=== PATIENT | male | born 1970 | race African-American/Black ===

== ENCOUNTER 2017-09-25 01:19 | Emergency (ER) | payer BC, OTHER ==
[~2017-09-25] VITALS: Ht 180.3 cm; Wt 110.0 kg
[~2017-09-25 01:19] MED LIST: CLEOCIN150 MG PO; CLEOCIN300 MG PO; CLINDAMYCIN HC300 MG PO; DILAUDID2 MG PO; ENDOCET 5-3251 EACH; FLEXERIL10 MG; FLEXERIL10 MG PO; IBUPROFEN800 MG; IBUPROFEN800 MG PO; LORTAB 5-325 M1 EACH PO; MOTRIN400 MG PO; MOTRIN600 MG PO; MOTRIN800 MG PO; NAPROSYN500 MG PO; NAPROXEN500 MG PO; NOHOMEMEDS; NORCO 5/3251 TABLET PO; PERCOCET 5/31 TABLET PO; ULTRAM50 MG PO; VALIUM5 MG PO
[2017-09-25 03:06] LABS: HEMATOCRIT 43.9 % (38.0-50.0); HEMOGLOBIN 14.4 G/DL (12.5-16.6); MCH 28.2 PG (29.0-34.0); MCHC 32.8 G/DL (30.0-36.0); MCV 85.9 FL (86-99); PLATELET COUNT 204 K/uL (156-360); RBC DIS.WIDTH-CV 13.2 % (11.8-14.6); RBC DIS.WIDTH-SD 41.8 % (39-53); RED BLOOD COUNT 5.11 M/uL (4.00-5.50); WHITE BLOOD COUNT 7.8 K/uL (4.1-10.2)
[2017-09-25 03:16] LABS: CHLORIDE 108 mEq/L (99-109); POTASSIUM 4.5 mEq/L (3.7-5.4); SODIUM 140 mEq/L (136-147)
[2017-09-25 03:17] LABS: GLUCOSE 107 mg/dL (70-99)
[2017-09-25 03:21] LABS: CREATININE 1.1 mg/dL (0.6-1.3); GFR ESTIMATE (CALCULATED) > 59 mL/min/ (58.99-99999)
[2017-09-25 03:22] LABS: UREA NITROGEN (BUN) 11 mg/dL (9-23)
[2017-09-25] MEDS ORDERED: CLEOCIN300 MG PO (04:57)
[2017-09-25] MEDS ORDERED: PERCOCET 5/31 TABLET PO (04:57)
[2017-09-25 05:40] VITALS: BP 140/90
[2017-09-26] MEDS ORDERED: GABAPENTIN300 MG PO (11:01)
[2017-09-26] MEDS ORDERED: IBUPROFEN800 MG PO (11:02)
== END 2017-09-25 05:50 | disposition home or self-care (01) ==
LOC: EME 01:19
PROVIDERS: Physician Assistant
DX: L03.211 Cellulitis of face (principal); H60.502 Unspecified acute noninfective otitis externa, left ear; F17.200 Nicotine dependence, unspecified, uncomplicated; Z88.0 Allergy status to penicillin
CPT/HCPCS: 70491; 80048; 85027; 99281; 99285; J2270; J3010; J7030

== ENCOUNTER 2017-09-26 02:37 | Inpatient (IN) | payer BC, OTHER ==
[~2017-09-26] VITALS: Ht 180.3 cm; Wt 111.3 kg
[2017-09-26] VITALS: BP 119/65
[2017-09-26 06:09] LABS: HEMOGLOBIN 14.4 G/DL (12.5-16.6); MCHC 32.7 G/DL (30.0-36.0); MCV 85.6 FL (86-99); PLATELET COUNT 190 K/uL (156-360); RBC DIS.WIDTH-CV 13.2 % (11.8-14.6); RBC DIS.WIDTH-SD 41.4 % (39-53); RED BLOOD COUNT 5.14 M/uL (4.00-5.50); WHITE BLOOD COUNT 10.1 K/uL (4.1-10.2)
[2017-09-26 06:20] LABS: ALBUMIN 4.3 g/dL (3.2-4.8); CHLORIDE 102 mEq/L (99-109); POTASSIUM 4.3 mEq/L (3.7-5.4); SODIUM 136 mEq/L (136-147)
[2017-09-26 06:22] LABS: GLUCOSE 102 mg/dL (70-99)
[2017-09-26 06:23] LABS: TOTAL PROTEIN 7.4 g/dL (6.4-8.3)
[2017-09-26 06:24] LABS: TOTAL BILIRUBIN 0.6 mg/dL (0.0-1.0)
[2017-09-26 06:26] LABS: ALKALINE PHOSPHATASE 64 IU/L (3-129); CREATININE 1.1 mg/dL (0.6-1.3); GFR ESTIMATE (CALCULATED) > 59 mL/min/ (58.99-99999)
[2017-09-26 06:27] LABS: UREA NITROGEN (BUN) 12 mg/dL (9-23)
[2017-09-26 06:28] LABS: AST (GOT) 16 IU/L (2-34)
[2017-09-26 06:29] LABS: ALT (GPT) 24 IU/L (3-49)
[2017-09-26] MEDS ORDERED: GABAPENTIN300 MG PO (11:01)
[2017-09-26] MEDS ORDERED: IBUPROFEN800 MG PO (11:02)
[2017-09-26 13:58] VITALS: BP 142/67
[2017-09-26 23:55] VITALS: BP 130/62
[2017-09-27 03:56] VITALS: BP 127/66
[2017-09-27 06:06] LABS: HEMOGLOBIN 12.5 G/DL (12.5-16.6); MCH 27.2 PG (29.0-34.0); MCHC 32.1 G/DL (30.0-36.0); PLATELET COUNT 218 K/uL (156-360); RBC DIS.WIDTH-CV 13.1 % (11.8-14.6); RBC DIS.WIDTH-SD 40.7 % (39-53); RED BLOOD COUNT 4.59 M/uL (4.00-5.50); WHITE BLOOD COUNT 19.4 K/uL (4.1-10.2)
[2017-09-27 06:32] LABS: CHLORIDE 105 MEQ/L (99-109); GFR ESTIMATE (CALCULATED) > 59 mL/min/ (58.99-99999); GLUCOSE 142 mg/dL (70-99); POTASSIUM 4.2 MEQ/L (3.7-5.4); SODIUM 137 MEQ/L (136-147); UREA NITROGEN (BUN) 19 mg/dL (9-23)
[2017-09-27 07:22] VITALS: BP 138/63
[2017-09-27] MEDS ORDERED: BACTRIM,SEPT1 TABLET PO (10:26)
[2017-09-27] MEDS ORDERED: KEFLEX500 MG PO (10:27)
[2017-09-27 12:16] VITALS: BP 113/73
== END 2017-09-27 13:36 | disposition home or self-care (01) | DRG 603 ==
LOC: EME 02:37 → EDOF 08:03 → 2EAST 08:03 → ENRESERV 08:04 → 2EAST 14:00
PROVIDERS: Emergency Medicine; Internal Medicine
DX: L03.211 Cellulitis of face (principal); F17.200 Nicotine dependence, unspecified, uncomplicated; Z88.0 Allergy status to penicillin
CPT/HCPCS: 70491; 80048; 80053; 85027; 87040; 87641; 87651 90; 94799; 99281; 99285; J0690; J1650; J1885; J2270; J2405; J2930; J3010; J3370; J7030